=== PATIENT | female | born 1940 | race Caucasian/White ===

== ENCOUNTER 2017-08-31 10:29 | Inpatient (IN) ==
[2017-08-31] MEDS ORDERED: METHYLPREDNISOLONE SOD SUCC 125mg/2ml INJECTION IVP ONE (10:40)
[2017-08-31] MEDS ORDERED: ALBUTEROL/IPRATROPIUM 2.5mg-0.5mg/3ml NEB IH ONE (10:40)
[2017-08-31] MEDS: SALINE FLUSH 10ml SYRINGE IVF PRN ×3 (11:33→16:44)
[2017-08-31] MEDS ORDERED: KETOROLAC 30 MG/ML INJECTION IVP ONE (11:40)
--- NOTE | 2017-08-31 11:53 | CT Scan Report ---
Indication: dyspnea, hx cancer PROCEDURE: CT chest wo con: Encounter: Initial Comparison: Chest CT dated August 20, 2015 Technique: Axial CT images were performed through the chest without intravenous contrast. Coronal and sagittal two-dimensional reformats. Automated Exposure Control and Iterative Reconstruction dose reducing techniques were utilized. Findings: Groundglass 5 mm nodule in the left upper lobe may be slightly larger than the comparison study. Postoperative changes in the right lung with scarring and volume loss. There is new pleural thickening present on the right. Mild emphysema. No pneumonia, pleural effusion or pneumothorax. The remaining central airways are patent. Thyroid gland is unremarkable. No axillary or mediastinal lymphadenopathy by CT size criteria. Heart is mildly enlarged without pericardial effusion. The upper abdomen shows no acute findings. Old treated lower T10 compression fracture. Old right posterior rib fractures. Impression: 1. No acute disease process seen in the chest. Probable posttreatment changes in the right lung with volume loss, rounded atelectasis and pleural thickening/scarring. 2. Slight increased prominence of a groundglass 5 mm nodule in the left upper lobe. Recommend follow-up CT in one year to evaluate for stability. .
--- NOTE | 2017-08-31 13:30 | Emergency Department Report ---
SOB HPI - General Chief Complaint: Shortness of Breath/Dyspnea Stated Complaint: dyspnea,wheezing Time Seen by Provider: 08/31/17 10:39 - History of Present Illness 77 yo female with SOA x2 days. Last night was coughing all night and had diff breathing,but would not come to ED. Friends finally called EMS today to bring her in. Fever two days ago. No Oxygen used at home. She lives alone. MD Complaint: shortness of breath - Related Data Home Medications Medication Instructions Recorded Confirmed Albuterol Sulfate [Proair Hfa] 1 puff INH Q4H PRN 08/31/17 08/31/17 Alirocumab [Praluent Pen] 75 mg SQ Q2WKS 08/31/17 08/31/17 Ascorbate Calcium [Vitamin C] 500 mg PO DAILY 08/31/17 08/31/17 Bumetanide [Bumetanide] 2 mg PO DAILY 08/31/17 08/31/17 Cholecalciferol (Vitamin D3) 800 unit PO DAILY 08/31/17 08/31/17 [Vitamin D3] Diclofenac [Voltaren] 1 applicatio TP PRN PRN 08/31/17 08/31/17 Febuxostat [Uloric] 40 mg PO DAILY 08/31/17 08/31/17 Fluticasone Furoate [Arnuity 1 puff INH DAILY 08/31/17 08/31/17 Ellipta] Hydralazine [Apresoline] 25 mg PO TID 08/31/17 08/31/17 Labetalol HCl [Labetalol HCl] 300 mg PO BID 08/31/17 08/31/17 Levothyroxine Sodium 25 mcg PO SUTUTHSA 08/31/17 08/31/17 Levothyroxine Sodium 50 mcg PO MOWEFR 08/31/17 08/31/17 NIFEdipine XL [Procardia Xl] 30 mg PO DAILY 08/31/17 08/31/17 Nitroglycerin 0.4 mg SL Q5MIN3 PRN 08/31/17 08/31/17 [place]-3/Dha/Epa/Fish Oil [Fish Oil 2,000 mg PO DAILY 08/31/17 08/31/17 1,000 mg Softgel] Omeprazole [Prilosec] 20 mg PO ACB 08/31/17 08/31/17 Potassium Chloride 10 meq PO DAILY 08/31/17 08/31/17 Sour Craft Extract [Tart Craft 2,000 mg PO DAILY 08/31/17 08/31/17 Extract] Terazosin [Hytrin] 5 mg PO HS 08/31/17 08/31/17 Umeclidinium Brm/Vilanterol Tr 1 puff INH DAILY 08/31/17 08/31/17 [Anoro Ellipta 62.5-25 Mcg INH] Vit C/Vit E/Lutein/Min/[place]-3 1 cap PO DAILY 08/31/17 08/31/17 [Ocuvite Softgel] Vitamin B12 1 tab PO DAILY 08/31/17 08/31/17 Warfarin Sodium [Warfarin Sodium] 7.5 mg PO 1800 08/31/17 08/31/17 Previous Rx's Medication Instructions Recorded Benzonatate [Tessalon Perles] 200 mg PO QIDPRN #30 cap 08/31/17 Nitrofurantoin. [Macrobid] 100 mg PO BID #20 cap 08/31/17 predniSONE [Prednisone] 10 mg PO DAILY #18 tab 08/31/17 Allergies Allergy/AdvReac Type Severity Reaction Status Date / Time iodine Allergy Intermediate Itching Verified 08/31/17 10:46 Penicillins AdvReac Swelling Verified 08/31/17 10:54 procaine [From Novocain] AdvReac Swelling Verified 08/31/17 10:54 Sulfa (Sulfonamide AdvReac Swelling Verified 08/31/17 10:54 Antibiotics) Review of Systems All systems: reviewed and negative except as stated PFSH Patient Stated Medical History Chronic Obstructive Pulmonary Yes Disease (COPD) - Social History Smoking status: Never smoker Substance use type: does not use Physical Exam - Limitations Limitations: no limitations - General General appearance: alert, in distress (respiratory) - Normal Exams: Head:: Normocephalic without trauma Cardiovascular:: without murmur or gallop, Pulses 2+ all extremities, capillary refill, <2 seconds all extremities Abdomen:: Bowel sounds positive, soft, non-tender, non-distended, no hepatosplenomegaly, masses or bruits noted Neurological:: Patient is alert, and oriented, cranial nerves, motor/sensory/ cerebellar, exams w/o gross deficits, to observation - Respiratory Respiratory exam: Present: wheezes (severe on presentation.), prolonged expiratory phase - Cardiovascular Cardiovascular exam: Present: normal rhythm, tachycardia Course Vital Signs Temperature 99 F 08/31/17 10:40 Pulse Rate 85 08/31/17 10:40 Respiratory Rate 25 H 08/31/17 10:40 Blood Pressure 153/69 H 08/31/17 10:40 Pulse Oximetry 88 L 08/31/17 10:40 Temperature 98.4 F 08/31/17 11:52 Pulse Rate 81 08/31/17 13:09 Respiratory Rate 22 08/31/17 13:09 Blood Pressure 141/60 H 08/31/17 13:09 Pulse Oximetry 95 08/31/17 13:13 Shortness of Breath/Dyspnea - [facility] Narrative Medical decision making narrative: IV placed, 500ml NS bolus. CBC,CMP, [place], ct chest (due to hx of cancer). Duoneb treatment and solumedrol 125mg iv. patient had improvement in symptoms after treatment and steroids. She did not require oxygen. We discussed options including possible hospital admission, but she did not meet parameters. She is okay to go home tonight on a prednisone taper and see how she does. She did promise to come back if she worsens at all. She does have UTI noted on labs we will treat it with Macrobid. For respiratory, Prednisone and Tessalon Perles. Follow up with primary care provider tomorrow - Differential Diagnosis Likely: acute exacerbation of chronic obstructive airways disease, asthma with exacerbation - Medical Records Attestation: I reviewed the patient's medical records. - Lab Data Attestation: I reviewed the patient's lab results. Result diagrams: 08/31/17 10:57 08/31/17 11:02 Lab Results 08/31/17 08/31/17 08/31/17 Range/Units 10:57 11:02 11:02 WBC 8.7 (4.5-11.0) T/MM3 RBC 3.17 L (4.00-5.20) M/MM3 Hgb 9.4 L (12-16) GM/DL Hct 28.1 L (36-46) % MCV 88.6 (80-100) UM3 MCH 29.7 (26-34) UUG MCHC 33.5 (31-37) GM/DL RDW Std Deviation 44.0 (36.9-50.2) FL Plt Count 332 (130-400) T/MM3 MPV 8.6 L (9.4-12.4) UM3 Immature Gran % (Auto) 0.2 (0.0-0.5) % Neut % (Auto) 83.3 H (33-66) % Lymph % (Auto) 8.8 L (23-45) % [place] % (Auto) 7.5 (0-9.0) % Eos % (Auto) 0.1 (0-4) % Baso % (Auto) 0.1 (0-2) % Neut # (Auto) 7.2 (1.8-7.7) T/MM3 Lymph # (Auto) 0.8 L (1-4.8) T/MM3 [place] # (Auto) 0.7 (0-0.8) T/MM3 Eos # (Auto) 0.0 (0-0.5) T/MM3 Baso # (Auto) 0.0 (0-0.2) T/MM3 Abs Immat Gran (auto) 0.02 (0.00-0.03) T/MM3 Turbidity < 20 (0-20) Sodium 130 L (134-144) MEQ/L Potassium 3.7 (3.6-5) MEQ/L Chloride 92 L (98-107) MEQ/L Carbon Dioxide 24 (22-30) MEQ/L Anion Gap 14 (5-15) MEQ/L BUN 22.0 H (7-17) MG/DL Creatinine 1.6 H (0.7-1.2) MG/DL GFR Calculation 31 BUN/Creatinine Ratio 14 (6-26) RATIO Glucose 118 H (65-110) MG/DL Calculated Osmolality 255 L (261-280) MOSM/KG Calcium 8.8 (8.4-10.2) MG/DL Total Bilirubin 0.50 (0.20-1.30) MG/DL Icterus Index < 2 (0-7) AST 56 H (14-36) U/L ALT 50 (9-52) U/L Alkaline Phosphatase 123 (38-126) U/L Troponin I 0.024 (0-0.12) ng/ml B-Natriuretic Peptide 3860 H (0-175) pg/mL Total Protein 7.0 (6.3-8.2) G/DL Albumin 4.0 (3.5-5.0) G/DL Globulin 3.0 (2.4-3.6) G/DL Albumin/Globulin Ratio 1.3 (1.1-2.2) RATIO Plasma Lactate 0.9 (0.6-2.2) MMOL/L Specimen Hemolysis < 15 (0-25) Ur Collection Type Urine Color (YELLOW) Urine Clarity Urine pH (5.0-8.0) Ur Specific [place] (1.015-1.025) Urine Protein (NEGATIVE) Urine Glucose (UA) (NEGATIVE) Urine Ketones (NEGATIVE) Urine Occult Blood (NEGATIVE) Urine Nitrate (NEGATIVE) Urine Bilirubin (NEGATIVE) Urine Urobilinogen (NORMAL) EU/DL Ur Leukocyte Esterase (NEGATIVE) Urine RBC (0-3) /HPF Urine WBC (0-5) /HPF Urine WBC Clumps Ur Squamous Epith Cells Urine Bacteria (NEGATIVE) Ur Culture Indicated? 08/31/17 Range/Units 12:04 WBC (4.5-11.0) T/MM3 RBC (4.00-5.20) M/MM3 Hgb (12-16) GM/DL Hct (36-46) % MCV (80-100) UM3 MCH (26-34) UUG MCHC (31-37) GM/DL RDW Std Deviation (36.9-50.2) FL Plt Count (130-400) T/MM3 MPV (9.4-12.4) UM3 Immature Gran % (Auto) (0.0-0.5) % Neut % (Auto) (33-66) % Lymph % (Auto) (23-45) % [place] % (Auto) (0-9.0) % Eos % (Auto) (0-4) % Baso % (Auto) (0-2) % Neut # (Auto) (1.8-7.7) T/MM3 Lymph # (Auto) (1-4.8) T/MM3 [place] # (Auto) (0-0.8) T/MM3 Eos # (Auto) (0-0.5) T/MM3 Baso # (Auto) (0-0.2) T/MM3 Abs Immat Gran (auto) (0.00-0.03) T/MM3 Turbidity (0-20) Sodium (134-144) MEQ/L Potassium (3.6-5) MEQ/L Chloride (98-107) MEQ/L Carbon Dioxide (22-30) MEQ/L Anion Gap (5-15) MEQ/L BUN (7-17) MG/DL Creatinine (0.7-1.2) MG/DL GFR Calculation BUN/Creatinine Ratio (6-26) RATIO Glucose (65-110) MG/DL Calculated Osmolality (261-280) MOSM/KG Calcium (8.4-10.2) MG/DL Total Bilirubin (0.20-1.30) MG/DL Icterus Index (0-7) AST (14-36) U/L ALT (9-52) U/L Alkaline Phosphatase (38-126) U/L Troponin I (0-0.12) ng/ml B-Natriuretic Peptide (0-175) pg/mL Total Protein (6.3-8.2) G/DL Albumin (3.5-5.0) G/DL Globulin (2.4-3.6) G/DL Albumin/Globulin Ratio (1.1-2.2) RATIO Plasma Lactate (0.6-2.2) MMOL/L Specimen Hemolysis (0-25) Ur Collection Type Urine, void-cc/notcc Urine Color Yellow (YELLOW) Urine Clarity Cloudy Urine pH 5.5 (5.0-8.0) Ur Specific [place] 1.020 (1.015-1.025) Urine Protein 2+ A (NEGATIVE) Urine Glucose (UA) Negative (NEGATIVE) Urine Ketones Negative (NEGATIVE) Urine Occult Blood Trace-intact (NEGATIVE) Urine Nitrate Negative (NEGATIVE) Urine Bilirubin 1+ A (NEGATIVE) Urine Urobilinogen 0.2 (NORMAL) EU/DL Ur Leukocyte Esterase 3+ A (NEGATIVE) Urine RBC 0-1 (0-3) /HPF Urine WBC 50-200 H (0-5) /HPF Urine WBC Clumps Moderate H Ur Squamous Epith Cells 5-10 Urine Bacteria 3+ H (NEGATIVE) Ur Culture Indicated? Cult reflexed &setup - Radiology Data Attestation: I reviewed the patient's radiology results. Disposition Clinical Impression: Asthma with exacerbation Disposition: Discharged Home, Self-Care Condition: Improved Instructions: Wheezing (ED) Additional Instructions: Prednisone 10 mg tablet. 3 tabs daily for 3 days, 2 tabs daily for 3 days, one tab daily for 3 days. Tessalon Perles, 1 tablet every 6 hours as needed for cough. Macrobid, one tablet twice daily for 10 days. This is to treat bladder infection. Follow-up with primary care provider tomorrow. YOU HAVE AGREED TO CALL FOR HELP IF YOU HAVE ANY TROUBLE BREATHING. YOU GAVE YOUR WORD AND IF YOU DO NOT CALL, I WILL TURN YOUR FRIENDS LOOSE ON YOU!!!!!! Care Plan: Prednisone 10 mg tablet. 3 tabs daily for 3 days, 2 tabs daily for 3 days, one tab daily for 3 days. Tessalon Perles, 1 tablet every 6 hours as needed for cough. Macrobid, one tablet twice daily for 10 days. This is to treat bladder infection. Follow-up with primary care provider tomorrow. YOU HAVE AGREED TO CALL FOR HELP IF YOU HAVE ANY TROUBLE BREATHING. YOU GAVE YOUR WORD AND IF YOU DO NOT CALL, I WILL TURN YOUR FRIENDS LOOSE ON YOU!!!!!! Prescriptions: New Nitrofurantoin. [Macrobid] 100 mg PO BID #20 cap Benzonatate [Tessalon Perles] 200 mg PO QIDPRN #30 cap predniSONE [Prednisone] 10 mg PO DAILY #18 tab No Action Sour Craft Extract [Tart Craft Extract] 2,000 mg PO DAILY Nitroglycerin 0.4 mg SL Q5MIN3 PRN PRN Reason: Chest Pain Diclofenac [Voltaren] 1 applicatio TP PRN PRN PRN Reason: Pain Cholecalciferol (Vitamin D3) [Vitamin D3] 800 unit PO DAILY Ascorbate Calcium [Vitamin C] 500 mg PO DAILY Vitamin B12 1 tab PO DAILY Vit C/Vit E/Lutein/Min/[place]-3 [Ocuvite Softgel] 1 cap PO DAILY [place]-3/Dha/Epa/Fish Oil [Fish Oil 1,000 mg Softgel] 2,000 mg PO DAILY Omeprazole [Prilosec] 20 mg PO ACB Levothyroxine Sodium 50 mcg PO MOWEFR Levothyroxine Sodium 25 mcg PO SUTUTHSA Umeclidinium Brm/Vilanterol Tr [Anoro Ellipta 62.5-25 Mcg INH] 1 puff INH DAILY Fluticasone Furoate [Arnuity Ellipta] 1 puff INH DAILY Febuxostat [Uloric] 40 mg PO DAILY Warfarin Sodium [Warfarin Sodium] 7.5 mg PO 1800 Bumetanide [Bumetanide] 2 mg PO DAILY Terazosin [Hytrin] 5 mg PO HS NIFEdipine XL [Procardia Xl] 30 mg PO DAILY Labetalol HCl [Labetalol HCl] 300 mg PO BID Alirocumab [Praluent Pen] 75 mg SQ Q2WKS Albuterol Sulfate [Proair Hfa] 1 puff INH Q4H PRN PRN Reason: Prn Orders Potassium Chloride 10 meq PO DAILY Hydralazine [Apresoline] 25 mg PO TID Referrals: Elliot Ribeiro MD [Family Provider] - Time of Disposition: 13:51 - Seen By: physician
[2017-08-31 15:13] VITALS: BMI 41.1
--- NOTE | 2017-08-31 15:36 | History & Physical Report ---
History of Present Illness Date: 08/31/17 Chief complaint: shortness of breath HPI: Patient is a 77-year-old female who presents to the emergency room today for shortness of breath. States she's had shortness of breath and cough for the past 2 weeks. No fever. Shortness of breath is worsening. Does not usually use home oxygen. Has a history of lung cancer diagnosed in 2014. Treated with resection, no chemotherapy or radiation. Dr. Patterson is her oncologist. Dr. Tianna Srinivasan is her supervisor process testing. She is on chronic anticoagulation for atrial fibrillation. Worksite Wellness Practitioner is Dr. Mauro. Has had multiple colonoscopies and workup for chronic anemia with no obvious source of bleeding. Takes epoetin injections every 3 weeks. Workup in the ER included CT chest showing no acute changes. EKG showed normal sinus rhythm. Sodium was low, creatinine slightly elevated. BNP elevated. Normal white count. Hemoglobin low at 9.4. Her average hemoglobin over the past 3 months is 9.9. She was unable to sustain sats greater than 90% without 2 L of oxygen, thus Dr. Mcguire was notified and patient is being admitted for inpatient hospitalization due to her hypoxia thought to be secondary to COPD exacerbation. Review of Systems All systems PM: 10-point ROS was reviewed, no additional remarkable complaints except (shortness of breath, cough, headache) Past Medical History Medical History Lung cancer (2013)-no recurrence Hypertension Coronary artery disease (stent 2) COPD Chronic anemia (q 3 week epoetin injection) Paroxysmal atrial fibrillation-chronic anticoagulation Gout Chronic kidney disease Surgical History: Back surgery (1972, 2003), cholecystectomy (2003), appendectomy (1986), hysterectomy (1986), left wrist surgery (1974), carpal tunnel release bilateral (1990), bilateral cataract removal (1999), resection of lung cancer -right lower lobe (2013), removal of skin cancer from the nose ( 1999, 2004, 2009), heart catheter (1997, 1999, 2003, 2007-stent, 2008, 2011- stent), multiple colonoscopies Family History: Father of an SD Mother of a natural at age 99-07/20 Family History Updates: updated - Social History Smoking status: Former smoker (smoked for 34 years. Quit 1988) Substance use type: does not use Alcohol intake frequency: does not drink Household members: none Current occupational status: retired Current residence: Apartment/Private Home Social history: PCP-Dr. Ribeiro Oncologist-Dr. Patterson Urologist-Dr. Wilson Worksite Wellness Practitioner-Dr. Mauro Technical Advisor-Dr. Kamara Change Management Specialist-Dr. BarnesGeorge L. Mee [facility] HospitalZarina CODE STATUS-DO NOT RESUSCITATE DPOA-H-son (Ed Entz) Medications Home Medications Medication Instructions Recorded Confirmed Type Albuterol Sulfate [Proair Hfa] 1 puff INH Q4H PRN 08/31/17 08/31/17 History Alirocumab [Praluent Pen] 75 mg SQ Q2WKS 08/31/17 08/31/17 History Ascorbate Calcium [Vitamin C] 500 mg PO DAILY 08/31/17 08/31/17 History Bumetanide [Bumetanide] 2 mg PO DAILY 08/31/17 08/31/17 History Cholecalciferol (Vitamin D3) 800 unit PO DAILY 08/31/17 08/31/17 History [Vitamin D3] Diclofenac [Voltaren] 1 applicatio TP PRN PRN 08/31/17 08/31/17 History Febuxostat [Uloric] 40 mg PO DAILY 08/31/17 08/31/17 History Fluticasone Furoate [Arnuity 1 puff INH DAILY 08/31/17 08/31/17 History Ellipta] Hydralazine [Apresoline] 25 mg PO TID 08/31/17 08/31/17 History Labetalol HCl [Labetalol HCl] 300 mg PO BID 08/31/17 08/31/17 History Levothyroxine Sodium 25 mcg PO SUTUTHSA 08/31/17 08/31/17 History Levothyroxine Sodium 50 mcg PO MOWEFR 08/31/17 08/31/17 History NIFEdipine XL [Procardia Xl] 30 mg PO DAILY 08/31/17 08/31/17 History Nitroglycerin 0.4 mg SL Q5MIN3 PRN 08/31/17 08/31/17 History [place]-3/Dha/Epa/Fish Oil [Fish Oil 2,000 mg PO DAILY 08/31/17 08/31/17 History 1,000 mg Softgel] Omeprazole [Prilosec] 20 mg PO ACB 08/31/17 08/31/17 History Potassium Chloride 10 meq PO DAILY 08/31/17 08/31/17 History Sour Craft Extract [Tart Craft 2,000 mg PO DAILY 08/31/17 08/31/17 History Extract] Terazosin [Hytrin] 5 mg PO HS 08/31/17 08/31/17 History Umeclidinium Brm/Vilanterol Tr 1 puff INH DAILY 08/31/17 08/31/17 History [Anoro Ellipta 62.5-25 Mcg INH] Vit C/Vit E/Lutein/Min/[place]-3 1 cap PO DAILY 08/31/17 08/31/17 History [Ocuvite Softgel] Vitamin B12 1 tab PO DAILY 08/31/17 08/31/17 History Warfarin Sodium [Warfarin Sodium] 7.5 mg PO 1800 08/31/17 08/31/17 History Allergies Allergy/AdvReac Type Severity Reaction Status Date / Time iodine Allergy Intermediate Itching Verified 08/31/17 10:46 Penicillins AdvReac Swelling Verified 08/31/17 10:54 procaine [From Novocain] AdvReac Swelling Verified 08/31/17 10:54 Sulfa (Sulfonamide AdvReac Swelling Verified 08/31/17 10:54 Antibiotics) Exam Vital Signs: Temperature 96.4 F L 08/31/17 14:57 Pulse Rate 81 08/31/17 14:57 Respiratory Rate 20 08/31/17 14:57 Blood Pressure 150/86 H 08/31/17 14:57 Pulse Oximetry 92 08/31/17 14:57 Height/Weight/BMI: Height 1.55 m Weight 98.8 kg Body Mass Index 41.1 - Constitutional Present: no acute distress, well nourished, well developed, obese - Routine HEENT Exam Head: Present: normocephalic, atraumatic Eye: Present: EOMI, PERRL ENT: Present: mucous membranes dry, oropharynx clear - Routine Neck Exam Present: supple. Absent: lymphadenopathy, thyromegaly, tenderness - Routine Respiratory Exam Present: dyspnea, decreased breath sounds, wheezes - Routine Cardiovascular Exam Present: RRR, no murmur - Routine Abdominal Exam Present: soft, normoactive bowel sounds. Absent: tenderness, distended - Routine Extremities Exam Present: no edema, normal capillary refill - Routine Skin Exam Present: dry, warm - Routine Neurological Exam Present: alert, oriented X3, CN II-XII intact - Routine Psychiatric Exam Present: normal affect, cooperative Results - Labs CBC & Chem 7: 08/31/17 10:57 08/31/17 11:02 Labs: Laboratory Tests 08/31/17 08/31/17 11:02 11:02 Troponin I 0.024 B-Natriuretic Peptide 3860 H Plasma Lactate 0.9 UA 08/31/17 12:04 Urine Color Yellow Urine Clarity Cloudy Urine pH 5.5 Ur Specific [place] 1.020 Urine Protein 2+ A Urine Glucose (UA) Negative Urine Ketones Negative Urine Occult Blood Trace-intact Urine Nitrate Negative Urine Bilirubin 1+ A Urine Urobilinogen 0.2 Ur Leukocyte Esterase 3+ A Urine RBC 0-1 Urine WBC 50-200 H Urine WBC Clumps Moderate H Ur Squamous Epith Cells 5-10 Urine Bacteria 3+ H Respiratory panel neg - ECG Data Tracing #1 Normal sinus rhythm - Imaging and Cardiology CT scan - chest Additional comments: Date: 08/31/17 Indication: dyspnea, hx cancer PROCEDURE: CT chest wo con: Findings: Groundglass 5 mm nodule in the left upper lobe may be slightly larger than the comparison study. Postoperative changes in the right lung with scarring and volume loss. There is new pleural thickening present on the right. Mild emphysema. No pneumonia, pleural effusion or pneumothorax. The remaining central airways are patent. Thyroid gland is unremarkable. No axillary or mediastinal lymphadenopathy by CT size criteria. Heart is mildly enlarged without pericardial effusion. The upper abdomen shows no acute findings. Old treated lower T10 compression fracture. Old right posterior rib fractures. Impression: 1. No acute disease process seen in the chest. Probable posttreatment changes in the right lung with volume loss, rounded atelectasis and pleural thickening/scarring. 2. Slight increased prominence of a groundglass 5 mm nodule in the left upper lobe. Recommend follow-up CT in one year to evaluate for stability. Assessment and Plan (1) COPD exacerbation Current visit: Yes Status: Acute Assessment and Plan: Assessment Acute respiratory failure with hypoxia COPD exacerbation CKD Stage 3 (creatinine 1.35 on 06/28/17) Hyponatremia (130)- POA (Na+ 136 on 06/28/17) Lung cancer (2013)-no recurrence Hypertension Coronary artery disease (stent 2) Chronic anemia (q 3 week epoetin injection) Paroxysmal atrial fibrillation-chronic anticoagulation Gout lumbar DDD Osteoporosis GERD Secondary hyperparathyroidism Asymptomatic bacteriuria vs UTI Plan Admit, inpatient status, Dr. Mcguire attending. Stay expected to exceed 2 overnights given her hypoxia secondary to COPD exacerbation and comorbidities. Bolused 500 mL normal saline in ER. Solu-Medrol 125 mg IV and DuoNeb treatments given in ER with improvement of symptoms. Rocephin for pulmonary and urinary coverage. Continue solumedrol and Duonebs. Acapella. Continue warfarin for paroxysmal a fib- pharm consult. INR now. Currently taking 7.5mg warfarin qd. Check overnight ox and exercise ox tomorrow to eval for home O2 needs. Repeat CBC and BMP in am to follow hyponatremia and anemia. Patient wishes to be DNR. Care to return to Dr. Ribeiro on dismissal. Case discussed with Dr. Mcguire and ER physician, Dr. Sofia. DVT Prophylaxis: SCD's, Coumadin Resuscitation Status: Do Not Resuscitate - Physician Narrative Physician: Deisy Mcguire MD Narrative: Date: 08/31/17 Time: 5:40 PM-Dr. Mcguire Patient is a pleasant 77-year-old female with COPD who is on breathing treatments at home. She is not on home O2. She has had a one-week history of cough and increased dyspnea with wheezing. Her cough is nonproductive. She is blowing yellow bloody drainage from her nose and has some frontal area headache. This nasal drainage is new. She has some mild generalized aching. She has had no fevers. She is eating and drinking well. She has some chest pain with cough only. The patient also complains of fatigue and states she thinks this is because of her anemia. On exam she is alert and oriented 3. She has mild nonproductive cough with audible wheezing. HEENT reveals sclerae to be anicteric and oropharynx is moist. Neck is supple. Chest reveals wheezing throughout the lung lin. Cardiovascular reveals a regular rate and rhythm. Abdomen is soft, obese, nontender with positive bowel sounds. Extremities are free of edema. CT chest results were reviewed. Pertinent lab includes hemoglobin of 9.4. Sodium of 1:30. BUN 22. Creatinine 1.6. INR 1.8. Lactate normal 2. BNP 3860. Viral respiratory panel is negative. Urinalysis appears positive for UTI versus bacteriuria. EKG reveals sinus rhythm with low voltage QRS Impression Acute hypoxic respiratory failure COPD exacerbation Possible sinusitis Chronic anemia on erythropoietin Chronic kidney disease Elevated BNP without signs of CHF or pulmonary edema on CAT scan Plan We'll admit as inpatient with hypoxia and COPD exacerbation. We'll give breathing treatments and IV steroids. Will consult Dr. Stovall. Rocephin for COPD exacerbation and possible UTI CT sinuses in the morning without contrast Repeat CBC and basic metabolic profile tomorrow Continuous oximetry Hospital Course Summary Disclaimer: The visit summary below is not to be considered part of the above Progress Note. Hospital Course: 08/31/17 - hospital admission Admit, inpatient status, Dr. Mcguire attending. Stay expected to exceed 2 overnights given her hypoxia secondary to COPD exacerbation and comorbidities. Bolused 500 mL normal saline in ER. Solu-Medrol 125 mg IV and DuoNeb treatments given in ER with improvement of symptoms. Rocephin for pulmonary and urinary coverage. Continue solumedrol and Duonebs. Acapella. Continue warfarin for paroxysmal a fib-- pharm consult. INR now. Currently taking 7.5mg warfarin qd. Check overnight ox and exercise ox tomorrow to eval for home O2 needs. Repeat CBC and BMP in am to follow hyponatremia and anemia. Patient wishes to be a full code. Care to return to Dr. Ribeiro on dismissal. Case discussed with Dr. Mcguire and ER physician, Dr. Sofia.
[2017-08-31] MEDS ORDERED: WARFARIN - PHARMACY CONSULT MC ONE ×2 (15:58→16:57)
[2017-08-31] MEDS ORDERED: METHYLPREDNISOLONE SOD SUCC 125mg/2ml INJECTION IVP SCH ×2 (16:00→18:00)
[2017-08-31] MEDS: CEFTRIAXONE 1 G in NS 50 ML IV SCH (16:43)
[2017-08-31] MEDS ORDERED: NS FLUSH BAG 500ml IV PRN (16:44)
[2017-08-31] MEDS ORDERED: DICLOFENAC 1% TOP GEL 100gm TP PRN (17:00)
[2017-08-31] MEDS: ALBUTEROL/IPRATROPIUM 2.5mg-0.5mg/3ml NEB AEROSOL SCH ×2 (17:02→20:39)
[2017-08-31] MEDS ORDERED: ACETAMINOPHEN 500 MG TABLET PO PRN (17:33)
[2017-08-31] MEDS: METHYLPREDNISOLONE SOD SUCC 125mg/2ml INJECTION IVP SCH (18:13)
[2017-08-31] MEDS: LEVOTHYROXINE 25 MCG TABLET PO SCH (18:13)
[2017-08-31] MEDS: HYDRALAZINE 25 MG TABLET PO SCH (18:13)
[2017-08-31] MEDS: ACETAMINOPHEN 325 MG TABLET PO PRN (18:17)
--- NOTE | 2017-08-31 18:26 | Pharmacy Consult ---
Pharmacy Consult-Warfarin - Consult Information Will give warfarin 7.5mg po tonight. This is patient's home dose. Will evaluate in morning. Thank you.
[2017-08-31] MEDS ORDERED: WARFARIN 7.5 MG TABLET PO ONE (18:30)
[2017-08-31] MEDS: GUAIFENESIN/D-METHORPHAN 600mg/30mg TABLET PO SCH (22:36)
[2017-08-31] MEDS: TERAZOSIN 5 MG CAPSULE PO SCH (22:38)
[2017-08-31] MEDS: LABETALOL 100 MG TABLET PO SCH (22:38)
[2017-09-01] MEDS: SALINE FLUSH 10ml SYRINGE IVF PRN (00:42)
[2017-09-01] MEDS: METHYLPREDNISOLONE SOD SUCC 125mg/2ml INJECTION IVP SCH ×4 (00:42→17:15)
[2017-09-01] MEDS: OMEPRAZOLE 20 MG CAPSULE PO SCH (06:49)
[2017-09-01] MEDS: ALBUTEROL/IPRATROPIUM 2.5mg-0.5mg/3ml NEB AEROSOL SCH ×4 (07:23→21:29)
--- NOTE | 2017-09-01 09:38 | CT Scan Report ---
Indication: rule out sinus infection PROCEDURE: CT sinus wo con: Encounter: Initial Comparison: None Technique: Axial CT images were performed through the sinuses without intravenous contrast. Coronal and sagittal two-dimensional reformats. Automated Exposure Control and Iterative Reconstruction dose reducing techniques were utilized. Findings: Mild mucosal thickening in both maxillary sinuses. No acute air-fluid levels seen. The ostiomeatal units are patent. The frontal sinuses are clear. No significant nasal septal deviation or spurring. Tiny yuriy bullosa noted on the left. The ethmoid air cells are clear. Mild mucosal thickening in the sphenoid sinuses, greater on the left with bubbly secretions. The sphenoid ostia are patent. Bilateral mastoid effusions, greater on the right. Impression: Scattered sinus disease with possible acute left sphenoid sinusitis. .
--- NOTE | 2017-09-01 09:39 | Pharmacy Consult ---
Pharmacy Consult-Warfarin - Laboratory Information 09/01/17 05:07 INR 1.75 H - Consult Information Warfarin protocol: day 2 77 y.o Female with history of a. fib and chronic anticoagulation with Warfarin. Home warfarin dose= 7.5 mg po daily. goal INR range= 2.0 to 3.0. date INR dose 08/31 1.80 7.5 mg 09/01 1.75 plan: 8 mg INR is subtherapeutic, will give Warfarin 8 mg po x 1 dose today. Potential drug -drug interaction exists between Ceftriaxone and Warfarin, may increase INR and risk of bleeding. Pharmacy will monitor and adjust as needed. Thank you for the Warfarin dosing protocol, Anu Croft RPh
[2017-09-01] MEDS: ACETAMINOPHEN 325 MG TABLET PO PRN (09:56)
[2017-09-01] MEDS: FEBUXOSTAT 40 MG TABLET PO SCH (09:57)
[2017-09-01] MEDS: LABETALOL 100 MG TABLET PO SCH ×2 (09:58→21:41)
[2017-09-01] MEDS: HYDRALAZINE 25 MG TABLET PO SCH ×3 (09:58→17:13)
[2017-09-01] MEDS: BUMETANIDE 1 MG TABLET PO SCH (09:59)
[2017-09-01] MEDS: GUAIFENESIN/D-METHORPHAN 600mg/30mg TABLET PO SCH ×2 (10:00→21:42)
[2017-09-01] MEDS: FLUTICASONE FUROATE PO SCH (10:19)
[2017-09-01] MEDS ORDERED: MORPHINE SULFATE 2mg INJECTION IVP PRN (11:40)
[2017-09-01] MEDS ORDERED: WARFARIN 4 MG TABLET PO SCH (12:00)
--- NOTE | 2017-09-01 13:32 | Progress Note ---
- Date 09/01/17 Subjective: Ninfa is seen today in follow-up. She is up in the chair and states that she is feeling much better today from yesterday. She has been able to wean off oxygen currently and is on room air. She complains of a headache that is slightly improved with tylenol. Appetite continues to improve. Was able to get up and ambulate with nursing staff this morning. Objective Vital signs: Temperature 95.7 F L 09/01/17 08:07 Pulse Rate 80 09/01/17 09:00 Respiratory Rate 20 09/01/17 08:07 Blood Pressure 177/90 H 09/01/17 10:23 Pulse Oximetry 93 09/01/17 10:30 Height/Weight/BMI: Height 1.55 m Weight 98.8 kg Body Mass Index 41.1 - Constitutional Present: no acute distress, well nourished, well developed - Routine HEENT Exam Eye: Present: EOMI ENT: Present: mucous membranes moist, dentition normal - Routine Respiratory Exam Present: CTA bilaterally. Absent: wheezes - Routine Cardiovascular Exam Present: RRR, S1, S2. Absent: murmur - Routine Abdominal Exam Present: soft, normoactive bowel sounds, non distended. Absent: tenderness - Routine Extremities Exam Present: pulses intact - Routine Skin Exam Present: intact, dry, warm - Routine Neurological Exam Present: alert, oriented X3, CN II-XII intact, moving all extremities - Routine Lymphatic Exam Lymphatic: Absent: adenopathy - Routine Psychiatric Exam Present: normal affect, cooperative Results - Labs CBC & Chem 7: 09/01/17 05:06 09/01/17 05:07 Assessment and Plan (1) COPD exacerbation Current visit: Yes Status: Acute Assessment and Plan: Assessment Acute respiratory failure with hypoxia- Resolved COPD exacerbation CKD Stage 3 (creatinine 1.35 on 06/28/17) Hyponatremia (130)- POA (Na+ 136 on 06/28/17) Lung cancer (2013)-no recurrence Hypertension Coronary artery disease (stent 2) Chronic anemia (q 3 week epoetin injection) Paroxysmal atrial fibrillation-chronic anticoagulation Gout lumbar DDD Osteoporosis GERD Secondary hyperparathyroidism Asymptomatic bacteriuria vs UTI New- Acute sinuitis 09/01 Ct of sinuses revels acute sinuitis. Continue on Rocephin. She will need 10 day of treatment course. Continue Duonebs and Acapella. Able to wean off oxygen today. May consider decreasing solu-medrol Persistent hyponatremia, sodium today 127. Urine sodium was found to be low at 7. May consider fluid restriction. Urine culture reveals gram negative rods, wait for sensitivity, blood cultures remain negative Continue to follow routine labs. Discuss further orders and plan of care with attending, Dr. Mcguire 09/01/2017-I reviewed this chart, the patient history, and the [employer]/TRACK AND FIELD COACH's/PA's documented findings as above. We discussed and formulated the assessment and plan as above with the additions below.-Dr. Mcguire Patient was seen this afternoon in her room. She states she's feeling a lot better than yesterday. She is currently on room air. She continues to wheeze, but it is not as bad. She has not had any nasal drainage today. She did have a headache earlier today and she thinks it may be due to the breathing treatments. Her headache is gone now. She previously rated her headache as severe and received IV morphine. She states she tries to drink 64 ounces of water a day. She states she has had low sodium in the past. On exam she is alert and in no acute distress HEENT reveals sclerae to be anicteric and oropharynx is moist. Neck is supple without JVD. Chest reveals expiratory wheezes throughout, but much less so than yesterday. Cardiovascular reveals a regular rate and rhythm. Abdomen is soft and nontender. Extremities reveal mild pretibial edema. TSH and uric acid levels are normal Urine sodium is low at 7 CT sinuses were viewed and agree Impression Acute hypoxic respiratory failure-improved COPD exacerbation-proving Sinusitis Hyponatremia with possible excessive water intake Chronic anemia Plan Start oral prednisone tomorrow and discontinue Solu-Medrol Overnight oximetry on room air Repeat CBC and basic metabolic profile tomorrow 1.5 L fluid restriction Possible discharge tomorrow Resuscitation Status: Do Not Resuscitate - Physician Narrative Narrative: Date: 09/01/17 Time: 1327 Hospital Course Summary Disclaimer: The visit summary below is not to be considered part of the above Progress Note. Hospital Course: 08/31/17 - hospital admission Admit, inpatient status, Dr. Mcguire attending. Stay expected to exceed 2 overnights given her hypoxia secondary to COPD exacerbation and comorbidities. Bolused 500 mL normal saline in ER. Solu-Medrol 125 mg IV and DuoNeb treatments given in ER with improvement of symptoms. Rocephin for pulmonary and urinary coverage. Continue solumedrol and Duonebs. Acapella. Continue warfarin for paroxysmal a fib-- pharm consult. INR now. Currently taking 7.5mg warfarin qd. Check overnight ox and exercise ox tomorrow to eval for home O2 needs. Repeat CBC and BMP in am to follow hyponatremia and anemia. Patient wishes to be a full code. Care to return to Dr. Ribeiro on dismissal. Case discussed with Dr. Mcguire and ER physician, Dr. Sofia. 09/01 Ct of sinuses revels acute sinuitis. Continue on Rocephin. She will need 10 day of treatment course. Continue Duonebs and Acapella. Able to wean off oxygen today. May consider decreasing solu-medrol Persistent hyponatremia, sodium today 127. Urine sodium was found to be low at 7. May consider fluid restriction. Urine culture reveals gram negative rods, wait for sensitivity, blood cultures remain negative Continue to follow routine labs. Discuss further orders and plan of care with attending, Dr. Mcguire
[2017-09-01] MEDS ORDERED: SALIVA SUBSTITUTE MOUTHWASH 237ml MM PRN (16:51)
[2017-09-01] MEDS ORDERED: LEVOTHYROXINE 25 MCG TABLET PO SCH (17:00)
[2017-09-01] MEDS: CEFTRIAXONE 1 G in NS 50 ML IV SCH (17:14)
[2017-09-01] MEDS: PredniSONE 20 MG TABLET PO SCH (17:23)
[2017-09-01] MEDS: TERAZOSIN 5 MG CAPSULE PO SCH (21:42)
[2017-09-02] MEDS: OMEPRAZOLE 20 MG CAPSULE PO SCH (06:20)
[2017-09-02] MEDS: ALBUTEROL/IPRATROPIUM 2.5mg-0.5mg/3ml NEB AEROSOL SCH ×3 (07:11→15:17)
[2017-09-02 07:38] VITALS: TEMP 97.4
--- NOTE | 2017-09-02 08:07 | Pulmonology Consult Note ---
<Pati Reich D - Last Filed: 09/02/17 08:12> History of Present Illness Consult date: 09/01/17 Requesting physician: Deisy Mcguire Reason for consult: cough, COPD Chief complaint: SOB History of present illness: This is a 77 yo with a Hx of COPD and lung ca s/p LLL resection. She states for the past 3 days she's had increased SOB, cough and wheezing. Due to these symptoms she presented to the ER with shortness of breath that was worsening. Does not usually use home oxygen. Dr. Patterson is her oncologist and Dr. Jimenez is her computer teacher. In the ER she had a CT chest showing no acute changes, sodium was low, creatinine slightly elevated. BNP elevated. Normal white count. Hemoglobin low at 9.4. She was hypoxic on admit and started on 2L of oxygen. She was admitted for further cares and we have been consulted for her respiratory issues. Review of Systems - Constitutional Constitutional: Present: fatigue. Absent: chills, fever(s) - EENT Eyes: Absent: blurry vision, change in vision Nose: Absent: change in smell, pain - Cardiovascular Cardiovascular: Present: dyspnea on exertion. Absent: chest pain, palpitations - Respiratory Respiratory: Present: cough, dyspnea, dyspnea on exertion, wheezing - Gastrointestinal Gastrointestinal: Absent: abdominal pain, change in bowel habits - Musculoskeletal Musculoskeletal: Absent: abnormal gait, arthralgias - Integumentary/Breasts Integumentary: Absent: alopecia, change in hair, change in nails - Neurological Neurological: Absent: abnormal gait, abnormal movements - Psychiatric Psychiatric: Absent: abnormal sleep pattern, anhedonia, anxiety - Hematologic/Lymphatic Hematologic/Lymphatic: Absent: easy bleeding, easy bruising - Allergic/Immunologic Allergic/Immunologic: Absent: tongue swelling, throat swelling PFSH Patient Stated Medical History Cataracts Yes: removed Hypertension Yes Other Cardiology Yes: 2 stents heart palpations Chronic Obstructive Pulmonary Yes Disease (COPD) Other Respiratory Yes: chronic wheezing Hx Urinary Tract Infection Yes: now Anemia Yes: q 3 week for epo shot Blood Transfusions Yes: last since 2008 Surgical History: Back surgery (1972, 2003), cholecystectomy (2003), appendectomy (1986), hysterectomy (1986), left wrist surgery (1974), carpal tunnel release bilateral (1990), bilateral cataract removal (1999), resection of lung cancer -right lower lobe (2013), removal of skin cancer from the nose ( 1999, 2004, 2009), heart catheter (1997, 1999, 2003, 2007-stent, 2008, 2011- stent), multiple colonoscopies - Social History Smoking status: Former smoker Housing: house Current residence: Apartment/Private Home Medications Home Medications Medication Instructions Recorded Confirmed Type Albuterol Sulfate [Proair Hfa] 1 puff INH Q4H PRN 08/31/17 08/31/17 History Alirocumab [Praluent Pen] 75 mg SQ Q2WKS 08/31/17 08/31/17 History Ascorbate Calcium [Vitamin C] 500 mg PO DAILY 08/31/17 08/31/17 History Bumetanide 2 mg PO DAILY 08/31/17 08/31/17 History Cholecalciferol (Vitamin D3) 800 unit PO DAILY 08/31/17 08/31/17 History [Vitamin D3] Diclofenac [Voltaren] 1 applicatio TP PRN PRN 08/31/17 08/31/17 History Febuxostat [Uloric] 40 mg PO DAILY 08/31/17 08/31/17 History Fluticasone Furoate [Arnuity 1 puff INH DAILY 08/31/17 08/31/17 History Ellipta] Hydralazine [Apresoline] 25 mg PO TID 08/31/17 08/31/17 History Labetalol HCl 300 mg PO BID 08/31/17 08/31/17 History Levothyroxine Sodium 25 mcg PO SUTUTHSA 08/31/17 08/31/17 History Levothyroxine Sodium 50 mcg PO MOWEFR 08/31/17 08/31/17 History NIFEdipine XL [Procardia Xl] 30 mg PO DAILY 08/31/17 08/31/17 History Nitroglycerin 0.4 mg SL Q5MIN3 PRN 08/31/17 08/31/17 History [place]-3/Dha/Epa/Fish Oil [Fish Oil 2,000 mg PO DAILY 08/31/17 08/31/17 History 1,000 mg Softgel] Omeprazole [Prilosec] 20 mg PO ACB 08/31/17 08/31/17 History Potassium Chloride 10 meq PO DAILY 08/31/17 08/31/17 History Sour Craft Extract [Tart Craft 2,000 mg PO DAILY 08/31/17 08/31/17 History Extract] Terazosin [Hytrin] 5 mg PO HS 08/31/17 08/31/17 History Umeclidinium Brm/Vilanterol Tr 1 puff INH DAILY 08/31/17 08/31/17 History [Anoro Ellipta 62.5-25 Mcg INH] Vit C/Vit E/Lutein/Min/[place]-3 1 cap PO DAILY 08/31/17 08/31/17 History [Ocuvite Softgel] Vitamin B12 1 tab PO DAILY 08/31/17 08/31/17 History Warfarin Sodium 7.5 mg PO 1800 08/31/17 08/31/17 History Allergies Allergy/AdvReac Type Severity Reaction Status Date / Time iodine Allergy Intermediate Itching Verified 08/31/17 10:46 Penicillins AdvReac Swelling Verified 08/31/17 10:54 procaine [From Novocain] AdvReac Swelling Verified 08/31/17 10:54 Sulfa (Sulfonamide AdvReac Swelling Verified 08/31/17 10:54 Antibiotics) Exam Vital signs: Temperature 97.4 F 09/02/17 07:34 Pulse Rate 73 09/02/17 07:34 Respiratory Rate 18 09/02/17 07:34 Blood Pressure 162/67 H 09/02/17 07:34 Pulse Oximetry 91 09/02/17 07:34 - Constitutional no acute distress, obese - Routine HEENT Exam Head: Present: normocephalic, atraumatic Eye: Present: EOMI, PERRL ENT: Present: mucous membranes moist Nose: moist mucous membranes - Routine Neck Exam Present: supple, full ROM, trachea midline - Routine Respiratory Exam Present: decreased breath sounds. Absent: prolonged expiratory phase, respiratory distress - Routine Cardiovascular Exam Present: S1, S2, no murmur - Routine Abdominal Exam Present: soft, normoactive bowel sounds - Routine Extremities Exam Present: non tender, full ROM. Absent: cyanosis, edema - Routine Back/Spine/Pelvis Exam Back/Spine: Present: full ROM - Routine Skin Exam Present: intact, dry - Routine Neurological Exam Present: alert, oriented X3, CN II-XII intact - Routine Psychiatric Exam Present: normal affect, normal thought process Results - Laboratory Findings CBC and BMP: 09/02/17 04:11 09/02/17 04:11 PT/INR, D-dimer INR 2.84 (0.99-1.21) H 09/02/17 04:11 Abnormal lab findings: Abnormal Labs 09/01/17 09/01/17 09/01/17 05:06 05:07 05:07 WBC RBC 3.34 L Hgb 10.0 L Hct 28.9 L Plt Count MPV 8.7 L Neutrophils % (Manual) 88.0 H Band Neutrophils % 8.0 H Lymphocytes % (Manual) 4.0 L Neutrophils # (Manual) Lymphocytes # (Manual) 0.3 L INR 1.75 H Sodium 127 L Chloride 91 L Carbon Dioxide 21 L BUN 26.0 H Creatinine BUN/Creatinine Ratio Glucose 142 H Calculated Osmolality 252 L Ur Random Sodium 09/01/17 09/02/17 09/02/17 10:41 04:11 04:11 WBC 14.0 H D RBC 3.24 L Hgb 9.5 L Hct 28.0 L Plt Count 411 H MPV 9.0 L Neutrophils % (Manual) 92.0 H Band Neutrophils % Lymphocytes % (Manual) 2.0 L Neutrophils # (Manual) 12.9 H Lymphocytes # (Manual) 0.3 L INR 2.84 H Sodium Chloride Carbon Dioxide BUN Creatinine BUN/Creatinine Ratio Glucose Calculated Osmolality Ur Random Sodium 7 L 09/02/17 04:11 WBC RBC Hgb Hct Plt Count MPV Neutrophils % (Manual) Band Neutrophils % Lymphocytes % (Manual) Neutrophils # (Manual) Lymphocytes # (Manual) INR Sodium 129 L Chloride 93 L Carbon Dioxide BUN 39.0 H D Creatinine 1.4 H D BUN/Creatinine Ratio 28 H Glucose 130 H Calculated Osmolality 260 L Ur Random Sodium - Diagnostic Findings CT scan - chest: image reviewed (see HPI) Assessment and Plan - Assessment and Plan Acute Hypoxic Respiratory Failure COPD exacerbation Chronic Kidney disease UTI 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 Cont on Arnuity daily and A/A QID, currently on steroids with solumedrol, wean as able. Cr 1.6, CKD, follow per primary. RVP negative, BC NTD, AU positive, on rocephin at this time. Stable at this time per pulmonary, will follow - Time Spent With Patient Total time spent is greater than 50% in coordination of care (as documented) at patient's floor/unit and/or counseling patient: 25 - 35 minutes <Pedro Stovall - Last Filed: 09/02/17 15:10> History of Present Illness History of present illness: This is a patient of Dr Man. She has history of lung CA. She has COPD and is on Anoro/Arnuity daily. Does not have O2 at home. Has not smoked in 20 years. [facility] Patient Stated Medical History Cataracts Yes: removed Hypertension Yes Other Cardiology Yes: 2 stents heart palpations Chronic Obstructive Pulmonary Yes Disease (COPD) Other Respiratory Yes: chronic wheezing Hx Urinary Tract Infection Yes: now Anemia Yes: q 3 week for epo shot Blood Transfusions Yes: last since 2008 Exam Vital signs: Temperature 97.4 F 09/02/17 07:34 Pulse Rate 84 09/02/17 09:51 Respiratory Rate 20 09/02/17 11:11 Blood Pressure 166/70 H 09/02/17 09:51 Pulse Oximetry 98 09/02/17 11:11 - Routine Respiratory Exam Absent: wheezes Results - Laboratory Findings CBC and BMP: 09/02/17 04:11 09/02/17 04:11 PT/INR, D-dimer INR 2.84 (0.99-1.21) H 09/02/17 04:11 Abnormal lab findings: Abnormal Labs 09/01/17 09/01/17 09/01/17 05:06 05:07 05:07 WBC RBC 3.34 L Hgb 10.0 L Hct 28.9 L Plt Count MPV 8.7 L Neutrophils % (Manual) 88.0 H Band Neutrophils % 8.0 H Lymphocytes % (Manual) 4.0 L Neutrophils # (Manual) Lymphocytes # (Manual) 0.3 L INR 1.75 H Sodium 127 L Chloride 91 L Carbon Dioxide 21 L BUN 26.0 H Creatinine BUN/Creatinine Ratio Glucose 142 H Calculated Osmolality 252 L Ur Random Sodium 09/01/17 09/02/17 09/02/17 10:41 04:11 04:11 WBC 14.0 H D RBC 3.24 L Hgb 9.5 L Hct 28.0 L Plt Count 411 H MPV 9.0 L Neutrophils % (Manual) 92.0 H Band Neutrophils % Lymphocytes % (Manual) 2.0 L Neutrophils # (Manual) 12.9 H Lymphocytes # (Manual) 0.3 L INR 2.84 H Sodium Chloride Carbon Dioxide BUN Creatinine BUN/Creatinine Ratio Glucose Calculated Osmolality Ur Random Sodium 7 L 09/02/17 04:11 WBC RBC Hgb Hct Plt Count MPV Neutrophils % (Manual) Band Neutrophils % Lymphocytes % (Manual) Neutrophils # (Manual) Lymphocytes # (Manual) INR Sodium 129 L Chloride 93 L Carbon Dioxide BUN 39.0 H D Creatinine 1.4 H D BUN/Creatinine Ratio 28 H Glucose 130 H Calculated Osmolality 260 L Ur Random Sodium - Diagnostic Findings CT scan - chest: report reviewed Assessment and Plan (1) Acute exacerbation of chronic obstructive pulmonary disease (COPD) Status: Acute Assessment and plan: upon dismissal, return to Anoro once daily, Arnuity once daily. Followup with PCP upon dismissal. wean prednisone as outpatient. Current Visit: Yes (2) Acute hypoxemic respiratory failure Status: Acute Assessment and plan: Was placed on O2 on admission. Weaned off successfully, back to room air Current Visit: Yes - Time Spent With Patient Total time spent is greater than 50% in coordination of care (as documented) at patient's floor/unit and/or counseling patient: - Attestation Attestation Narrative: I have seen and examined this patient. I have reviewed all pertinent data. The notes written by the BREWERY WORKER represent my findings and recommendations with additions and modifications
[2017-09-02] MEDS: FLUTICASONE FUROATE PO SCH (08:46)
[2017-09-02] MEDS: GUAIFENESIN/D-METHORPHAN 600mg/30mg TABLET PO SCH (09:52)
[2017-09-02] MEDS: PredniSONE 20 MG TABLET PO SCH (09:53)
[2017-09-02] MEDS: LABETALOL 100 MG TABLET PO SCH (09:54)
[2017-09-02] MEDS: BUMETANIDE 1 MG TABLET PO SCH (09:54)
[2017-09-02] MEDS: HYDRALAZINE 25 MG TABLET PO SCH ×2 (09:55→12:27)
[2017-09-02] MEDS: FEBUXOSTAT 40 MG TABLET PO SCH (09:55)
[2017-09-02 09:57] VITALS: BP 166/70; PULSE 84
[2017-09-02 11:20] VITALS: RESP 20; O2SAT 98
--- NOTE | 2017-09-02 11:22 | Pharmacy Consult ---
Pharmacy Consult-Warfarin - Laboratory Information 09/01/17 09/02/17 05:07 04:11 INR 1.75 H 2.84 H - Consult Information Warfarin protocol: day 3 77 y.o Female with history of a. fib and chronic anticoagulation with Warfarin. Home warfarin dose= 7.5 mg po daily. goal INR range= 2.0 to 3.0. date INR dose 08/31 1.80 7.5 mg 09/01 1.75 8 mg 09/02 2.84 Plan: 3.75 mg INR jumped fro subtherapeutic to high therapeutic with the Warfarin 8 mg dose yesterday. I am giving a dose of Warfarin 3.75 mg p.o. today, which is half the home dose recorded in the patient history. Potential drug-drug interaction exists between Ceftriaxone and Warfarin, may increase INR and risk of bleeding. The Pharmacy will monitor the INR's and adjust the warfarin as needed. Thanks for the Warfarin Dosing Protocol. Paul Calderón, Pharmacist
[2017-09-02] MEDS ORDERED: WARFARIN 7.5 MG TABLET PO SCH (12:00)
--- NOTE | 2017-09-02 14:25 | Progress Note ---
- Date 09/02/17 Subjective: F/U: Acute respiratory failure with hypoxia, COPD with acute exacerbation, acute sinusitis Doing much better today. Breathing well-not feeling congested or SOA. Less cough. Moving better. Appetite stable. No ab pain. Urinating well. No f/c. Objective Vital signs: Temperature 97.4 F 09/02/17 07:34 Pulse Rate 84 09/02/17 09:51 Respiratory Rate 20 09/02/17 11:11 Blood Pressure 166/70 H 09/02/17 09:51 Pulse Oximetry 98 09/02/17 11:11 Height/Weight/BMI: Height 1.55 m Weight 99.2 kg Body Mass Index 41.1 - Constitutional Present: no acute distress, well nourished, well developed, average body habitus , morbidly obese, cooperative - Routine HEENT Exam Head: Present: normocephalic, atraumatic Eye: Present: EOMI, PERRL ENT: Present: mucous membranes moist - Routine Respiratory Exam Present: decreased breath sounds. Absent: rales, respiratory distress, rhonchi , stridor, wheezes, crackles - Routine Cardiovascular Exam Present: RRR, no murmur - Routine Abdominal Exam Present: soft, normoactive bowel sounds, non distended, non tender. Absent: guarding - Routine Extremities Exam Present: pulses intact. Absent: cyanosis, clubbing - Routine Musculoskeletal Exam Musculoskeletal: Present: no clubbing or cyanosis, normal strength - Routine Skin Exam Present: dry, warm - Routine Neurological Exam Present: alert, oriented X3, CN II-XII intact, moving all extremities, vision grossly intact, hearing grossly intact, normal speech. Absent: motor deficit, altered mental status - Routine Psychiatric Exam Present: normal affect, normal thought process, cooperative Results - Labs CBC & Chem 7: 09/02/17 04:11 09/02/17 04:11 Assessment and Plan (1) COPD exacerbation Current visit: Yes Status: Acute Assessment and Plan: Assessment Acute respiratory failure with hypoxia- Resolved COPD exacerbation Sinusitis UTI with Klebsiella pneumonia CKD Stage 3 (creatinine 1.35 on 06/28/17) Hyponatremia (130)- POA (Na+ 136 on 06/28/17) Lung cancer (2013)-no recurrence Slight increased prominence of a ground glass 5 mm nodule in the left upper lobe. Recommend follow-up CT in one year to evaluate for stability. Hypertension Coronary artery disease (stent 2) Chronic anemia (q 3 week epoetin injection) Paroxysmal atrial fibrillation-chronic anticoagulation Coagulopathy with warfarin Gout Lumbar DDD Osteoporosis GERD Secondary hyperparathyroidism Morbid obesity with BMI 41.3 Plan With improvement of clinical symptoms, will discharge to home. Clindamycin 300mg TID and Cephalexin 500mg TID for 10 days for coverage of sinusitis. Prednisone 20mg daily for 5 days, then may stop. May have up to 1.5L fluid a day. F/U with Dr Ribeiro on Wednesday 09/13 as scheduled. Will needed F/U CT chest in 6 - 12 months secondary to slight increased prominence of a groundglass 5 mm nodule in the left upper lobe. See orders for details. DVT Prophylaxis: Coumadin Resuscitation Status: Do Not Resuscitate - Physician Narrative Physician: Patel Felix MD Narrative: Date: 09/02/17 Time: 1421 Hospital Course Summary Disclaimer: The visit summary below is not to be considered part of the above Progress Note. Hospital Course: 08/31/17 - Hospital Admission Admit, inpatient status, Dr. Mcguire attending. Stay expected to exceed 2 overnights given her hypoxia secondary to COPD exacerbation and comorbidities. Bolused 500 mL normal saline in ER. Solu-Medrol 125 mg IV and DuoNeb treatments given in ER with improvement of symptoms. Rocephin for pulmonary and urinary coverage. Continue Solu-Medrol and DuoNeb. Acapella. Continue warfarin for paroxysmal a fib-- pharm consult. INR now. Currently taking 7.5mg warfarin qd. Check overnight ox and exercise ox tomorrow to evaluation for home O2 needs. Repeat CBC and BMP in am to follow hyponatremia and anemia. Patient wishes to be a full code. Care to return to Dr. Ribeiro on dismissal. Case discussed with Dr. Mcguire and ER physician, Dr. Sofia. 09/01 Ct of sinuses revels acute sinuitis. Continue on Rocephin. She will need 10 day of treatment course. Continue DuoNeb and Acapella. Able to wean off oxygen today. May consider decreasing Solu-Medrol Persistent hyponatremia, sodium today 127. Urine sodium was found to be low at 7. May consider fluid restriction. Urine culture reveals gram negative rods, wait for sensitivity, blood cultures remain negative Continue to follow routine labs. Discuss further orders and plan of care with attending, Dr. Mcguire 09/02 With improvement of clinical symptoms, will discharge to home. Did not have desaturations on overnight oximetry. Clindamycin 300mg TID and Cephalexin 500mg TID for 10 days for coverage of sinusitis. Prednisone 20mg daily for 5 days, then may stop. May have up to 1.5L fluid a day. F/U with Dr Ribeiro on Wednesday 09/06 as scheduled. Will needed F/U CT chest in 6 - 12 months secondary to slight increased prominence of a groundglass 5 mm nodule in the left upper lobe. See orders for details.
--- NOTE | 2017-09-02 14:46 | Discharge Summary ---
Discharge Information Date of admission: 08/31/17 14:46 Anticipated date of discharge: 09/02/17 Attending Physician: Patel Felix MD Primary care physician: Elliot Ribeiro MD Consults: Dr Stovall- manager channel - Discharge Diagnosis (1) COPD exacerbation Status: Acute Acute respiratory failure with hypoxia- Resolved COPD exacerbation Sinusitis UTI with Klebsiella pneumonia CKD Stage 3 (creatinine 1.35 on 06/28/17) Hyponatremia (130)- POA (Na+ 136 on 06/28/17) Lung cancer (2013)-no recurrence Slight increased prominence of a ground glass 5 mm nodule in the left upper lobe. Recommend follow-up CT in one year to evaluate for stability. Hypertension Coronary artery disease (stent 2) Chronic anemia (q 3 week epoetin injection) Paroxysmal atrial fibrillation-chronic anticoagulation Coagulopathy with warfarin Gout Lumbar DDD Osteoporosis GERD Secondary hyperparathyroidism Morbid obesity with BMI 41.3 - Procedures Procedures: None - Laboratory Labs: 09/02/17 04:11 09/02/17 04:11 - Microbiology Microbiology 08/31/17 10:56 Peripheral/Iv Start Blood Culture - Preliminary No Growth After 2 Days 08/31/17 11:02 Peripheral/Iv Start Blood Culture - Preliminary No Growth After 2 Days 08/31/17 12:04 Urine, Voided (Cc/notcc) Urine Culture - Final Klebsiella pneumoniae - Radiology Radiology: 08/31/17-chest CT- Impression: 1. No acute disease process seen in the chest. Probable posttreatment changes in the right lung with volume loss, rounded atelectasis and pleural thickening/scarring. 2. Slight increased prominence of a groundglass 5 mm nodule in the left upper lobe. Recommend follow-up CT in one year to evaluate for stability. 09/01/[address] sinuses- Impression: Scattered sinus disease with possible acute left sphenoid sinusitis. - Pathology None History of Present Illness HPI: Patient is a 77-year-old female who presents to the emergency room today for shortness of breath. States she's had shortness of breath and cough for the past 2 weeks. No fever. Shortness of breath is worsening. Does not usually use home oxygen. Has a history of lung cancer diagnosed in 2013. Treated with resection, no chemotherapy or radiation. Dr. Patterson is her oncologist. Dr. Tianna Srinivasan is her manager channel. She is on chronic anticoagulation for atrial fibrillation. Ecological Economist is Dr. Mauro. Has had multiple colonoscopies and workup for chronic anemia with no obvious source of bleeding. Takes epoetin injections every 3 weeks. Workup in the ER included CT chest showing no acute changes. EKG showed normal sinus rhythm. Sodium was low, creatinine slightly elevated. BNP elevated. Normal white count. Hemoglobin low at 9.4. Her average hemoglobin over the past 3 months is 9.9. She was unable to sustain sats greater than 90% without 2 L of oxygen, thus Dr. Mcguire was notified and patient is being admitted for inpatient hospitalization due to her hypoxia thought to be secondary to COPD exacerbation. Objective Vital signs: Temperature 97.4 F 09/02/17 07:34 Pulse Rate 84 09/02/17 09:51 Respiratory Rate 20 09/02/17 11:11 Blood Pressure 166/70 H 09/02/17 09:51 Pulse Oximetry 98 09/02/17 11:11 Height/Weight/BMI: Height 1.55 m Weight 99.2 kg Body Mass Index 41.1 - Constitutional Present: no acute distress, well nourished, well developed - Routine HEENT Exam Eye: Present: EOMI ENT: Present: mucous membranes moist, dentition normal - Routine Respiratory Exam Present: CTA bilaterally. Absent: wheezes - Routine Cardiovascular Exam Present: RRR, S1, S2. Absent: murmur - Routine Abdominal Exam Present: soft, normoactive bowel sounds, non distended. Absent: tenderness - Routine Extremities Exam Present: normal capillary refill - Routine Back/Spine/Pelvis Exam Back/Spine: Present: full ROM - Routine Skin Exam Present: intact, dry, warm - Routine Neurological Exam Present: alert, oriented X3, CN II-XII intact - Routine Lymphatic Exam Lymphatic: Absent: adenopathy - Routine Psychiatric Exam Present: normal affect, cooperative Hospital Course This is a general summary of the patient's hospital course. For more details refer to the complete medical record. Hospital course: 08/31/17 - Hospital Admission Admit, inpatient status, Dr. Mcguire attending. Stay expected to exceed 2 overnights given her hypoxia secondary to COPD exacerbation and comorbidities. Bolused 500 mL normal saline in ER. Solu-Medrol 125 mg IV and DuoNeb treatments given in ER with improvement of symptoms. Rocephin for pulmonary and urinary coverage. Continue Solu-Medrol and DuoNeb. Acapella. Continue warfarin for paroxysmal a fib-- pharm consult. INR now. Currently taking 7.5mg warfarin qd. Check overnight ox and exercise ox tomorrow to evaluation for home O2 needs. Repeat CBC and BMP in am to follow hyponatremia and anemia. Patient wishes to be a full code. Care to return to Dr. Ribeiro on dismissal. Case discussed with Dr. Mcguire and ER physician, Dr. Sofia. 09/01 Ct of sinuses revels acute sinuitis. Continue on Rocephin. She will need 10 day of treatment course. Continue DuoNeb and Acapella. Able to wean off oxygen today. May consider decreasing Solu-Medrol Persistent hyponatremia, sodium today 127. Urine sodium was found to be low at 7. May consider fluid restriction. Urine culture reveals gram negative rods, wait for sensitivity, blood cultures remain negative Continue to follow routine labs. Discuss further orders and plan of care with attending, Dr. Mcguire 09/02- Discharge With improvement of clinical symptoms, will discharge to home. Did not have desaturations on overnight oximetry. Clindamycin 300mg TID and Cephalexin 500mg TID for 10 days for coverage of sinusitis. Prednisone 20mg daily for 5 days, then may stop. May have up to 1.5L fluid a day. F/U with Dr Ribeiro on Wednesday as scheduled. Will need a BMP at that time. Will needed F/U CT chest in 6 - 12 months secondary to slight increased prominence of a groundglass 5 mm nodule in the left upper lobe. See orders for details. Time spent with patient: greater than 35 minutes Resuscitation Status: Do Not Resuscitate Discharge Plan - Discharge Disposition Discharge Date: 09/02/17 Disposition: 01 Discharged Home, Self-Care *Condition: Improved Reason For Visit (Visit label in EMR): Hypoxemia, sinusitis - Discharge Medications *Discharge Medications: New Clindamycin [Cleocin] 300 mg PO TID 10 Days #30 cap Guaifenesin/Dm [Mucinex Dm] 2 tab PO BID tab PredniSONE [Deltasone 20 mg] 20 mg PO WB #5 tab predniSONE [Prednisone] 10 mg PO DAILY #18 tab CephALEXin [Keflex 500 mg] 500 mg PO TID 10 Days #30 cap Saliva Substitute Mouthwash [Biotene Dry Mouth Oral Rinse] 15 ml MM 5XD PRN bottle PRN Reason: Dry Mouth Continue Nitroglycerin 0.4 mg SL Q5MIN3 PRN PRN Reason: Chest Pain Diclofenac [Voltaren] 1 applicatio TP PRN PRN PRN Reason: Pain Cholecalciferol (Vitamin D3) [Vitamin D3] 800 unit PO DAILY Ascorbate Calcium [Vitamin C] 500 mg PO DAILY Vitamin B12 1 tab PO DAILY Vit C/Vit E/Lutein/Min/[place]-3 [Ocuvite Softgel] 1 cap PO DAILY [place]-3/Dha/Epa/Fish Oil [Fish Oil 1,000 mg Softgel] 2,000 mg PO DAILY Omeprazole [Prilosec] 20 mg PO ACB Levothyroxine Sodium 50 mcg PO MOWEFR Levothyroxine Sodium 25 mcg PO SUTUTHSA Umeclidinium Brm/Vilanterol Tr [Anoro Ellipta 62.5-25 Mcg INH] 1 puff INH DAILY Fluticasone Furoate [Arnuity Ellipta] 1 puff INH DAILY Febuxostat [Uloric] 40 mg PO DAILY Warfarin Sodium 7.5 mg PO 1800 Bumetanide 2 mg PO DAILY Terazosin [Hytrin] 5 mg PO HS NIFEdipine XL [Procardia Xl] 30 mg PO DAILY Labetalol HCl 300 mg PO BID Alirocumab [Praluent Pen] 75 mg SQ Q2WKS Albuterol Sulfate [Proair Hfa] 1 puff INH Q4H PRN PRN Reason: Prn Orders Potassium Chloride 10 meq PO DAILY Hydralazine [Apresoline] 25 mg PO TID No Action Sour Craft Extract [Tart Cratf Extract] 2,000 mg PO DAILY - Discharge Packet/Instructions *Diet: Fluid restriction of 1.5 liters a day *Activity: Activity as tolerated. Use walker *Pain Management/Treatment: Tylenol as needed for pain *Wound Care: None Additional Instructions: Take Keflex and Clincamycin antiobiotics for 10 days for treatment of sinus infection and a urinary tract infection. Prednisone 20 milligrams daily 5 days. Continue to use Mucinex as needed. It is important for you to continue on a fluid restriction of 1.5 liters of oral fluid intake at day. Follow up with Dr Ribeiro wednesday as scheduled. Will need BMP at that time *Expected Signs/Symptoms: Improvement *Notify Physician if: worsening shortness of breath, chest pain, nausea, vomiting, other concerning symptoms *During Business Hours Contact: Dr Ribeiro *After Business Hours Contact: Page temperature control inspector physician for your primary care provider *Pending Lab/Results: No Pending Lab - Referrals/Follow Up *Referrals/Follow Up: Elliot Ribeiro MD [Family Provider] - 09/13/17 11:00 am (Keep apt you have scheduled for wednesday. Will need a BMP lab at apt.) - Patient Handouts - Dismissal Complete Discharge Instructions are:: Complete Physician Narrative - Narrative Physician: Patel Felix MD Attestation Narrative: Date: 09/02/17 Time: 1443 Have independently interviewed and examined patient prior to discharge. See my progress note from today for details. Medically stable for discharge to home.
[2017-09-02] MEDS: CEFTRIAXONE 1 G in NS 50 ML IV SCH (16:00)
[2017-09-02] MEDS: LEVOTHYROXINE 25 MCG TABLET PO SCH (17:14)
== END 2017-09-02 17:13 | disposition home or self-care (01) | DRG 190 ==
LOC: ED 10:29 → SUATTDRO 14:46 → MED 14:46
PROVIDERS: ADMIT Internal Medicine; ATTEND Hospitalist

== ENCOUNTER 2017-12-22 08:15 | Observation (INO) ==
[2017-12-21 16:23] VITALS: BMI 38.0
[~2017-12-22 08:15] MED LIST: --POM--HYDRALAZINE 25 MG TABLET PO SCH; ACETAMINOPHEN 325 MG TABLET PO PRN; ALBUTEROL 2.5mg/3ml (0.083%) NEB AEROSOL PRN; CALCIUM CARBONATE Chewable 500mg TABLET PO PRN; DICLOFENAC 1% TOP GEL 100gm TP PRN; DiphenhydrAMINE 50 MG/ML INJECTION ONE; FentaNYL 100 MCG/2 ML INJECTION ONE; GUAIFENESIN/D-METHORPHAN 600mg/30mg TABLET PO PRN; HEPARIN 1,000 UNITS/500 ML PREMIX (*CVL ONLY*) IV ONE; HEPARIN 1,000unit/ml INJECTION 10ml ONE; LEVOTHYROXINE 25 MCG TABLET PO SCH; LIDOCAINE 1% (10mg/ml) 30ml SDV INJ ONE; METHYLPREDNISOLONE SOD SUCC 125mg/2ml INJECTION ONE; MIDAZOLAM 2mg/2ml INJECTION ONE; MORPHINE SULFATE 10mg/ml INJECTION IVP PRN; NITROGLYCERIN 0.4 MG SUBLINGUAL TABLET SL PRN; NITROGLYCERIN 50MG INJECTION IV ONE; NS 1,000 ML IV SCH; OMEPRAZOLE 20 MG CAPSULE PO SCH; ONDANSETRON 4 MG/2 ML INJECTION IVP PRN; SALINE FLUSH 10ml SYRINGE ONE; SALIVA SUBSTITUTE MOUTHWASH 237ml MM PRN; TERAZOSIN 5 MG PO SCH; TRAMADOL 50 MG TABLET PO PRN; Verapamil 5 MG/2 ML VIAL ONE
[2017-12-22] MEDS ORDERED: ONDANSETRON 4 MG/2 ML INJECTION IVP PRN (08:17)
[2017-12-22] MEDS ORDERED: NITROGLYCERIN 0.4 MG SUBLINGUAL TABLET SL PRN (08:17)
[2017-12-22] MEDS ORDERED: ACETAMINOPHEN 325 MG TABLET PO PRN (08:17)
[2017-12-22] MEDS ORDERED: PROMETHAZINE 25 MG INJECTION IVP PRN (08:17)
[2017-12-22] MEDS ORDERED: BISACODYL 10 MG SUPPOSITORY RECTALLY PRN (08:17)
[2017-12-22] MEDS ORDERED: HYDROCODONE/APAP 5mg/325mg TABLET PO PRN (08:17)
[2017-12-22] MEDS ORDERED: ATROPINE 1 MG/ML INJECTION IVP PRN (08:17)
[2017-12-22] MEDS ORDERED: METOCLOPRAMIDE 10mg/2ml INJECTION IVP PRN (08:17)
[2017-12-22] MEDS ORDERED: MAG-AL + SIM ORAL LIQUID 30ml PO PRN (08:17)
[2017-12-22] MEDS ORDERED: MORPHINE SULFATE 4mg INJECTION IVP PRN ×2 (08:17)
[2017-12-22] MEDS ORDERED: LORazepam 0.5 MG TABLET PO PRN (08:17)
[2017-12-22] MEDS ORDERED: Bisacodyl EC TAB 5 MG TABLET PO PRN (08:17)
[2017-12-22 08:27] VITALS: TEMP 97.5
--- NOTE | 2017-12-22 08:31 | XRay Report ---
Indication: chest pain PROCEDURE: XR chest 1V: Encounter: Initial Comparison: Chest CT dated August 31, 2017 Findings: Chronic right-sided pleural thickening or scarring. No focal pneumonia, pleural effusion or pneumothorax. Heart size and mediastinal contours are stable. Pulmonary vascularity appears normal. Impression: No acute cardiopulmonary disease. .
[2017-12-22] MEDS ORDERED: NON-FORMULARY MEDICATION 1 EACH EACH (Febuxostat [Uloric] 40 MG) PO SCH (09:00)
[2017-12-22] MEDS ORDERED: OMEGA-3 ACID ESTERS 1 GM CAPSULE PO SCH (09:00)
[2017-12-22] MEDS ORDERED: NON-FORMULARY MEDICATION 1 EACH EACH (Umeclidinium Brm/Vilanterol Tr [Anoro Ellipta 62.5-2 INH SCH (09:00)
[2017-12-22] MEDS ORDERED: NON-FORMULARY MEDICATION 1 EACH EACH (Vit C/Vit E/Lutein/Min/Omega-3 [Ocuvite Softgel] 1 C PO SCH (09:00)
[2017-12-22] MEDS ORDERED: BUMETANIDE 1 MG TABLET PO SCH (09:00)
[2017-12-22] MEDS ORDERED: LABETALOL 300 MG PO SCH (09:00)
[2017-12-22] MEDS ORDERED: HYDRALAZINE 25 MG TABLET PO SCH (09:00)
[2017-12-22] MEDS ORDERED: FLUTICASONE FUROATE INH SCH (09:00)
[2017-12-22] MEDS ORDERED: CHOLECALCIFEROL 800 UNIT PO SCH (09:00)
[2017-12-22] MEDS ORDERED: --POM--NIFEdipine XL 60 MG TABLET PO SCH (09:00)
[2017-12-22] MEDS ORDERED: NON-FORMULARY MEDICATION 1 EACH EACH (Omega-3/Dha/Epa/Fish Oil [Fish Oil 1,000 Mg Softgel] PO SCH (09:00)
[2017-12-22] MEDS ORDERED: DOCUSATE SODIUM 100 MG CAPSULE PO SCH (09:00)
[2017-12-22] MEDS ORDERED: ASCORBIC ACID 500 MG TABLET PO SCH (09:00)
[2017-12-22] MEDS ORDERED: NON-FORMULARY MEDICATION 1 EACH EACH (Ascorbate Calcium [Vitamin C] 500 MG) PO SCH (09:00)
[2017-12-22] MEDS ORDERED: FEBUXOSTAT 40 MG PO SCH (09:00)
[2017-12-22] MEDS ORDERED: CYANOCOBALAMIN (B-12) 500mcg TABLET PO SCH (09:00)
[2017-12-22] MEDS ORDERED: TART CHERRY EXTRACT PO SCH (09:00)
[2017-12-22] MEDS ORDERED: MULTI-VIT + MINERAL (Opti-gen) TABLET PO SCH (09:00)
--- NOTE | 2017-12-22 09:26 | Discharge Summary ---
<Tiki Velázquez - Last Filed: 12/24/17 10:36> Discharge Information Date of admission: 12/21/17 15:55 Anticipated date of discharge: 12/22/17 Attending Physician: Lorenzo Mauro MD Primary care physician: Elliot Ribeiro MD - Discharge Diagnosis (1) Precordial pain Status: Acute (2) Essential (primary) hypertension Status: Chronic (3) Paroxysmal atrial fibrillation Status: Chronic (4) Atherosclerotic heart disease of [place] coronary artery without angina pectoris Status: Chronic (5) Other secondary hypertension Status: Chronic (6) Mixed hyperlipidemia Status: Chronic unstable Angina, HTN, PAF, CAD, HLD - Procedures Procedures: Date of Exam: 12/22/17 Type of Exam(s): CA heart cath LT DATE OF PROCEDURE December 22, 2017 REFERRING PHYSICIAN Elliot Ribeiro MD INDICATIONS The patient is a pleasant 77-year lady with history of coronary artery disease who was admitted with unstable angina and referred for further evaluation by cardiac catheterization and possible intervention. INFORMED CONSENT Informed consent was obtained after explaining the procedure and the potential risks to the patient who agreed to proceed with the procedure. PROCEDURE 1. Left heart catheterization. 2. Coronary angiography. 3. Left ventriculography. TECHNIQUE She was prepped and draped in the usual sterile techniques. Conscious sedation was performed using Versed and fentanyl. 1% lidocaine was used for local anesthesia. Using modified Seldinger technique, arterial access was obtained into the right radial artery with placement of a 6-[place] arterial sheath. LEFT VENTRICULOGRAPHY Left ventriculography in single-plane MCGEE shallow projection showed normal LV systolic function with ejection fraction of about 65% with no mitral regurgitation or gradient across the aortic valve. LVEDP was about 13. CORONARY ANGIOGRAPHY Left main was free of significant lesions. The left anterior descending artery had an endovascular stent which was widely patent. LAD is a medium caliber vessel and wraps around the apex. There were minor irregularities in LAD but no hemodynamically significant lesions. Diagonals were free of significant lesions. The ramus intermedius was free of significant lesions. Left circumflex artery appears to be free of significant lesions. On one view, there was a hazy area in the proximal circumflex, however, this appears to be due to a bend in the circumflex. No significant lesions were identified in circumflex or marginals. Right coronary artery has about 30% proximal stenosis. It is a medium to large caliber vessel and dominant. The patient tolerated the procedure well with no complications. IMPRESSION 1. Normal LV systolic function with ejection fraction of about 65%. 2. Coronary artery disease as described above with widely patent LAD stent. PLAN Medical management. The patient may require noncardiac chest pain workup. - Laboratory Labs: 12/22/17 04:38 12/22/17 04:38 History of Present Illness HPI: Ninfa is a 77 year old female who is known to Dr. Mauro's practice with a history of CAD, PAF, HTN, and HLD who was seen in the clinic by Tamia Tolliver APRN and admitted for further evaluation of unstable angina. Her EKG in the clinic showed SR with slight ST depression. Hospital Course This is a general summary of the patient's hospital course. For more details refer to the complete medical record. Hospital course: Left heart catheterization, see report Time spent with patient: 25 - 35 minutes Resuscitation Status: Full Code Exam Vital signs: Temperature 97.5 F 12/22/17 08:23 Pulse Rate 62 12/22/17 09:15 Respiratory Rate 18 12/22/17 09:15 Blood Pressure 186/84 H 12/22/17 09:15 Pulse Oximetry 93 12/22/17 09:15 - Constitutional no acute distress, well nourished, cooperative - Routine HEENT Exam Head: Present: normocephalic ENT: Present: mucous membranes moist - Routine Neck Exam Absent: JVD, carotid bruit - Routine Chest/Breast/Axilla Exam Chest wall: Absent: tenderness - Routine Respiratory Exam Present: CTA bilaterally. Absent: rales, wheezes - Routine Cardiovascular Exam Present: RRR, no murmur - Routine Abdominal Exam Present: soft, non tender - Routine Extremities Exam Present: no edema, pulses intact - Routine Skin Exam Present: intact, dry, warm - Routine Neurological Exam Present: alert, oriented X3 - Routine Psychiatric Exam Present: normal affect, normal thought process Results 12/22/17 04:38 12/22/17 04:38 Cardiac Enzymes 12/21/17 12/21/17 12/22/17 Range/Units 17:18 22:46 04:38 Troponin I < 0.012 < 0.012 < 0.012 (0-0.12) ng/ml Lipids 12/22/17 Range/Units 04:38 Triglycerides 100 (35-135) mg/dL Cholesterol 186 (132-199) mg/dL HDL Cholesterol 53 (40-60) mg/dL Cholesterol/HDL Ratio 3.5 (0-4.0) RATIO CBC 12/22/17 Range/Units 04:38 WBC 4.8 (4.5-11.0) T/MM3 RBC 3.52 L (4.00-5.20) M/MM3 Hgb 10.7 L (12-16) GM/DL Hct 32.0 L (36-46) % Plt Count 324 (130-400) T/MM3 Neut # (Auto) 3.0 (1.8-7.7) T/MM3 Lymph # (Auto) 1.2 (1-4.8) T/MM3 [place] # (Auto) 0.4 (0-0.8) T/MM3 Eos # (Auto) 0.1 (0-0.5) T/MM3 Baso # (Auto) 0.0 (0-0.2) T/MM3 Comprehensive Metabolic Panel 12/22/17 Range/Units 04:38 Sodium 140 (134-144) MEQ/L Potassium 3.9 (3.6-5) MEQ/L Chloride 102 (98-107) MEQ/L Carbon Dioxide 27 (22-30) MEQ/L BUN 34.0 H (7-17) MG/DL Creatinine 1.2 (0.7-1.2) mg/dL Glucose 87 (65-110) MG/DL Calcium 9.1 (8.4-10.2) MG/DL Intake and Output 12/21/17 12/22/17 12/22/17 22:59 06:59 14:59 Intake Total 300 / 300 300 / 300 400 / 400 Output Total 575 / 575 Balance 300 / 300 300 / 300 -175 / -175 Intake: Oral 300 / 300 300 / 300 400 / 400 Output: Urine 575 / 575 Other: Urine Appearance Clear Clear Urine Color Yellow Yellow Urine Odor Normal Normal # Voids 3 Weight 201 lb 4.513 oz 203 lb 14.841 oz Patient Weight 12/23/17 06:59 Weight 203 lb 14.841 oz - Imaging and Cardiology Imaging & Cardiology Narrative: Date of Exam: 12/21/17 Ordering Provider: Tiki Velázquez APRN Type of Exam(s): XR chest 1V Reason for Exam(s): chest pain Indication: chest pain PROCEDURE: XR chest 1V: Encounter: Initial Comparison: Chest CT dated August 31, 2017 Findings: Chronic right-sided pleural thickening or scarring. No focal pneumonia, pleural effusion or pneumothorax. Heart size and mediastinal contours are stable. Pulmonary vascularity appears normal. Impression: No acute cardiopulmonary disease. 12/22/17 09:22 Discharge Plan - Med Rec/Dispo Referrals/Follow Up: Lorenzo Mauro MD [Physician] - 2 Weeks Martha Instructions: Chest Pain (GEN) Prescriptions: Continue Sour Craft Extract [Tart Craft Extract] 2,000 mg PO DAILY Nitroglycerin 0.4 mg SL Q5MIN3 PRN PRN Reason: Chest Pain Diclofenac Top Gel [Voltaren] 1 applicatio TP PRN PRN PRN Reason: Pain Cholecalciferol (Vitamin D3) [Vitamin D3] 800 unit PO DAILY Ascorbate Calcium [Vitamin C] 500 mg PO DAILY Vitamin B12 1 tab PO DAILY Vit C/Vit E/Lutein/Min/[place]-3 [Ocuvite Softgel] 1 cap PO DAILY [place]-3/Dha/Epa/Fish Oil [Fish Oil 1,000 mg Softgel] 2,000 mg PO DAILY Omeprazole [Prilosec] 20 mg PO ACB Levothyroxine Sodium 50 mcg PO MOWEFR Levothyroxine Sodium 25 mcg PO SUTUTHSA Umeclidinium Brm/Vilanterol Tr [Anoro Ellipta 62.5-25 Mcg INH] 1 puff INH DAILY Fluticasone Furoate [Arnuity Ellipta] 1 puff INH DAILY Febuxostat [Uloric] 40 mg PO DAILY Warfarin Sodium 7.5 mg PO 1800 Bumetanide 2 mg PO DAILY Terazosin [Hytrin] 5 mg PO HS NIFEdipine XL [Procardia Xl] 60 mg PO DAILY Labetalol HCl 300 mg PO BID Alirocumab [Praluent Pen] 75 mg SQ Q2WKS Albuterol Sulfate [Proair Hfa] 1 puff INH Q4H PRN PRN Reason: Prn Orders Potassium Chloride 10 meq PO DAILY Hydralazine [Apresoline] 25 mg PO TID Saliva Substitute Mouthwash [Biotene Dry Mouth Oral Rinse] 15 ml MM 5XD PRN bottle PRN Reason: Dry Mouth Guaifenesin/Dm [Mucinex Dm] 2 tab PO PRN - Disposition 01 Discharged Home, Self-Care - Dismissal Complete Discharge Instructions are:: Complete <Lorenzo Mauro - Last Filed: 12/29/17 13:39> Discharge Information Date of admission: 12/21/17 15:55 Attending Physician: Lorenzo Mauro MD Primary care physician: Elliot Ribeiro MD - Discharge Diagnosis (1) Precordial pain Status: Acute (2) Essential (primary) hypertension Status: Chronic (3) Paroxysmal atrial fibrillation Status: Chronic (4) Atherosclerotic heart disease of [place] coronary artery without angina pectoris Status: Chronic (5) Other secondary hypertension Status: Chronic (6) Mixed hyperlipidemia Status: Chronic - Laboratory Labs: 12/22/17 04:38 12/22/17 04:38 Hospital Course This is a general summary of the patient's hospital course. For more details refer to the complete medical record. Exam Vital signs: Temperature 97.5 F 12/22/17 08:23 Pulse Rate 64 12/22/17 11:30 Respiratory Rate 15 12/22/17 11:30 Blood Pressure 137/63 12/22/17 11:30 Pulse Oximetry 94 12/22/17 11:30 Results 12/22/17 04:38 12/22/17 04:38 Attestation Narriative - Attestation Attestation Narrative: 12/29/17 13:38 Recommendation After examining the patient I agree with the above assessment. I am involved in the formulation of the patient's plan of care.
[2017-12-22 10:35] VITALS: O2SAT 94
[2017-12-22 10:48] VITALS: PULSE 64
[2017-12-22] MEDS ORDERED: ALBUTEROL/IPRATROPIUM 2.5mg-0.5mg/3ml NEB AEROSOL SCH (11:00)
--- NOTE | 2017-12-22 12:27 | Cardiac Catheterization Report ---
DATE OF PROCEDURE December 22, 2017 REFERRING PHYSICIAN Elliot Ribeiro MD INDICATIONS The patient is a pleasant 77-year lady with history of coronary artery disease who was admitted with unstable angina and referred for further evaluation by cardiac catheterization and possible intervention. INFORMED CONSENT Informed consent was obtained after explaining the procedure and the potential risks to the patient who agreed to proceed with the procedure. PROCEDURE 1. Left heart catheterization. 2. Coronary angiography. 3. Left ventriculography. TECHNIQUE She was prepped and draped in the usual sterile techniques. Conscious sedation was performed using Versed and fentanyl. 1% lidocaine was used for local anesthesia. Using modified Seldinger technique, arterial access was obtained into the right radial artery with placement of a 6-[place] arterial sheath. LEFT VENTRICULOGRAPHY Left ventriculography in single-plane MCGEE shallow projection showed normal LV systolic function with ejection fraction of about 65% with no mitral regurgitation or gradient across the aortic valve. LVEDP was about 13. CORONARY ANGIOGRAPHY Left main was free of significant lesions. The left anterior descending artery had an endovascular stent which was widely patent. LAD is a medium caliber vessel and wraps around the apex. There were minor irregularities in LAD but no hemodynamically significant lesions. Diagonals were free of significant lesions. The ramus intermedius was free of significant lesions. Left circumflex artery appears to be free of significant lesions. On one view, there was a hazy area in the proximal circumflex, however, this appears to be due to a bend in the circumflex. No significant lesions were identified in circumflex or marginals. Right coronary artery has about 30% proximal stenosis. It is a medium to large caliber vessel and dominant. The patient tolerated the procedure well with no complications. IMPRESSION 1. Normal LV systolic function with ejection fraction of about 65%. 2. Coronary artery disease as described above with widely patent LAD stent. PLAN Medical management. The patient may require noncardiac chest pain workup. MTDD
[2017-12-22] MEDS ORDERED: WARFARIN 7.5 MG TABLET PO SCH (18:00)
[2017-12-22] MEDS ORDERED: BUDESONIDE INH.SOLN 0.5mg/2ml NEB AEROSOL SCH (19:00)
[2017-12-22] MEDS ORDERED: LEVOTHYROXINE 25 MCG TABLET PO SCH (22:26)
[2017-12-23 14:00] VITALS: BP 137/63; RESP 15
[2017-12-31] MEDS ORDERED: ALIROCUMAB 75 MG PO SCH (09:00)
== END 2017-12-22 12:05 | disposition home or self-care (01) ==
LOC: MED → SRG 08:15
PROVIDERS: ADMIT Internal Medicine Cardiovascular Disease; ATTEND Internal Medicine Cardiovascular Disease